=== PATIENT | male | born 1980 | race Two or more races ===

== ENCOUNTER 2019-02-17 13:17 | Emergency (ER) | payer OTHER ==
[~2019-02-17] VITALS: Ht 188 cm; Wt 77.1 kg
[2019-02-17 13:20] VITALS: BP 139/62
[2019-02-17] MEDS ORDERED: NKM (13:24)
[2019-02-17] MEDS ORDERED: Ketorolac 30mg Inj IM ONE (13:30)
[2019-02-17] MEDS ORDERED: Bacitracin Oint UD TOPIC ONE (13:30)
[2019-02-17] MEDS ORDERED: Tetanus/Diptheria/Pertussis Vaccine 0.5ml Syr IM ONE (13:30)
[2019-02-17] MEDS ORDERED: Hydrogen Peroxide 473ml Bottle TOPIC ONE (13:35)
--- NOTE | 2019-02-17 13:35 | Emergency Room Report ---
History of Present Illness General Chief Complaint: Laceration Source: Patient Present Illness HPI 38-year-old male patient presents the ER complaining of laceration on left finger. Reports approximately 30 minutes prior to arrival to ER he was using a table saw when he accidentally cut his middle finger. Reports bleeding from site of injury, states well controlled at this time. Reports is right-hand dominant. Reports does not know tetanus vaccination status. Denies loss of range of motion. Denies other aggravating or relieving factors. Patient states he does not have "piece of skin" that was cut off from his finger. Allergies: Coded Allergies: No Known Allergies (Unverified , 02/17/19) Patient History Past Medical History: see triage record Reviewed Nursing Documentation: PMH: Agreed; PSxH: Agreed Nursing Documentation-PMH Past Medical History: No Stated History Review of Systems All Other Systems: negative except mentioned in HPI Physical Exam Vital Signs Date Time Temp Pulse Resp B/P (MAP) Pulse Ox O2 Delivery O2 Flow Rate FiO2 02/17/19 13:21 98.1 74 14 141/93 97 Room Air Sp02 EP Interpretation: reviewed, normal General Appearance: well appearing, no apparent distress, alert, GCS 15, non- toxic Head: normocephalic, atraumatic Eyes: bilateral eye normal inspection, bilateral eye PERRL ENT: hearing grossly normal, normal pharynx, no angioedema, normal voice, uvula midline, moist mucus membranes Neck: full range of motion Respiratory: lungs clear, normal breath sounds, no rhonchi, no respiratory distress, no accessory muscle use, no wheezing, speaking full sentences Cardiovascular #1: regular rate, rhythm, no edema Cardiovascular #2: 2+ radial (R), 2+ radial (L) Musculoskeletal: back normal, digits/nails normal, gait/station normal, normal range of motion, other - Flexion and extension intact at MCP PIP and DIP joints , cap refill less than 2 seconds Neurologic: alert, oriented x3, responsive, motor strength/tone normal, sensory intact Skin: other - Left hand middle finger distal phalanx palmar side: 2 cm irregular laceration noted extending distally towards nail, no nail avulsion, no subungual hematoma, cuticle intact, Procedures Laceration/Wound Repair Laceration/Wound Repair : Consent: Verbal Wound Location: upper extremity Wound's Depth, Shape: superficial, irregular, stellate Wound Length (cm): 2 Wound Explored: contaminated Irrigated w/ Saline (ccs): 10 Betadine Prep?: Yes Anesthesia: 1% Lidocaine Volume Anesthetic (ccs): 3 Wound Debrided: extensive Wound Repaired With: sutures Suture Size/Type: 5:0 Layer Closure?: No Sterile Dressing Applied?: Yes Splint Applied?: Yes Sling Applied?: No Patient Tolerated: Well Complications: None Medical Decision Making PA Attestation Dr. Guzman is my supervising Physician whom patient management has been discussed with. Diagnostic Impression: Primary Impression: Laceration ER Course Pt presents to ED c/o laceration on left middle finger. DDX considered but are not limited to laceration, abrasion, contusion, cellulitis. VITAL SIGNS are WNL, patient is afebrile ED INTERVENTIONS: Full flexion and extension noted of MCP, DIP, IP joints, neurovascularly intact , sensation intact light touch, no signs of fracture or tendon rupture, does not require x-ray at this time. Wound was cleaned and irrigated using copious normal saline. Local and digital block using Lidocaine 1%. Laceration repaired. See procedure note. 4 sutures placed. Wound edges well approximated however due to irregular and stellate nature of laceration needs followup with hand/plastics specialist for possible further revision. Provided with contact information for hand specialist, instructed to followup in 2- 3 days, if unable to schedule appointment, followup with [facility]. Call to schedule appointment. Avoid excessive use of left hand to prevent tearing of sutures. Wound cleaned and covered using sterile dressing and Bacitracin. Patient reports understanding and agreement to treatment plan. Keep wound clean and dry. Followup with PCP in 2-3 days for wound check and suture removal in 7-12 days. ER precautions given. DISCHARGE: Rx provided for Keflex Rx provided for Bacitracin Rx provided for Ibuprofen At this time pt is stable for d/c to home. Patient resting comfortably, in no acute distress, nontoxic appearing, talking without difficulty. Will provide with patient care instructions and any necessary prescriptions. Patient to take medication as instructed. Care plan and follow-up instructions provided. Work note provided to patient. Patient questions asked and answered. Patient instructed to follow-up with primary care provider for wound check and suture removal. ER precautions given. Patient instructed to return to ER immediately for any new or worsening of symptoms. - Please note that this Emergency Department Report was dictated using [employer] pinner technology software, occasionally this can lead to erroneous entry secondary to interpretation by the dictation equipment. Last Vital Signs Date Time Temp Pulse Resp B/P (MAP) Pulse Ox O2 Delivery O2 Flow Rate FiO2 02/17/19 13:21 98.1 74 14 141/93 97 Room Air Status: improved Disposition: HOME, SELF-CARE Condition: Stable Scripts Ibuprofen* (MOTRIN*) 600 Mg Tablet 600 MG ORAL Q8H PRN for For Pain, #30 TAB 0 Refills Prov: Samuel Mcdonnell 02/17/19 Cephalexin* (KEFLEX*) 500 Mg Capsule 500 MG ORAL EVERY 12 HOURS, #14 CAP 0 Refills Prov: Samuel Mcdonnell 02/17/19 Bacitracin/Polymyxin B Sulfate (BACITRACIN-POLYMYXIN OINTMENT) 28.35 Gm Oint...g. 1 APPLIC TP BID, #28 GM Prov: Samuel Mcdonnell 02/17/19 Patient Instructions: Laceration Care, Adult Additional Instructions: Patient instructed to follow-up with primary care provider and/or hand specialist in 2-3 days for wound check Suture removal in 7-12 days. Take medications as directed. Keep wound clean and dry. Patient questions asked and answered. ER precautions given, patient instructed to return to ER immediately for any new or worsening of symptoms. Samuel Mcdonnell Feb 17, 2019 13:35
[2019-02-17] MEDS ORDERED: Lidocaine 1% MPF 10mg/ml 5ml INJ ONE (14:00)
[2019-02-17] MEDS ORDERED: CEPHALEXIN500 MG ORAL (15:38)
[2019-02-17] MEDS ORDERED: IBUPROFEN600 MG ORAL (15:38)
[2019-02-17] MEDS ORDERED: BACITRACIN-P28.35 GM TP (15:38)
[2019-02-17 15:55] VITALS: BP 124/78
== END 2019-02-17 15:55 | disposition home or self-care (01) ==
LOC: EMR 13:51
DX: S61.213A Laceration without foreign body of left middle finger without damage to nail, initial encounter (principal); W27.0XXA Contact with workbench tool, initial encounter; Y92.89 Other specified places as the place of occurrence of the external cause; Z23 Encounter for immunization
CPT/HCPCS: 12031; 90471; 90715; 96372; 99283; J1885